=== PATIENT | male | born 1990 | race Caucasian/White ===

== ENCOUNTER 2021-07-08 20:18 | Emergency (ER) | payer SELFPAY ==
[2021-07-08 20:22] VITALS: BP 133/77
--- NOTE | 2021-07-08 22:01 | XRay Report ---
RIGHT FOOT 3 VIEW(S) INDICATION / CLINICAL INFORMATION: INJURY COMPARISON: None available. FINDINGS: BONES / JOINT(S): No acute fracture or subluxation. No significant arthritis. SOFT TISSUES: No significant abnormality. ADDITIONAL FINDINGS: None. Signer Name: Alfredo Galo DO Signed: 07/08/2021 9:56 PM Workstation Name: [id number]
--- NOTE | 2021-07-08 22:05 | Emergency Department Report ---
ED Lower Extremity HPI - General Chief Complaint: Extremity Injury, Lower Stated Complaint: RIGHT TOE INJURY Time Seen by Provider: 07/08/21 21:35 Source: patient Mode of arrival: Ambulatory Limitations: No Limitations - History of Present Illness Initial Comments: 31-year-old male with no significant past medical history presents emerged department complaining of toe pain that was secondary to a dresser which he dropped on his foot causing a crush injury noted deformity to his toe. Injury occurred on yesterday with continued negative days he presents emerged part my seeking further evaluation and treatment options. Pain is dull and throbbing worse with palpation and certain positions also with ambulate Type of Injury: blunt Place: home Severity: mild, moderate Improves With: nothing Worsens With: nothing Associated Symptoms: swelling, able to partially bear weight - Related Data Previous Rx's Medication Instructions Recorded Last Taken Type traMADoL [Ultram] 50 mg PO Q6HR PRN #20 tablet 07/08/21 Unknown Rx Allergies Allergy/AdvReac Type Severity Reaction Status Date / Time No Known Allergies Allergy Unverified 07/08/21 20:24 ED Review of Systems ROS: Stated complaint: RIGHT TOE INJURY Other details as noted in HPI Comment: All other systems reviewed and negative ED Past Medical Hx - Past Medical History Previous Medical History?: No - Surgical History Past Surgical History?: Yes Additional Surgical History: RIGHT JAW SURGERY - Medications Home Medications: Home Medications Medication Instructions Recorded Confirmed Last Taken Type traMADoL [Ultram] 50 mg PO Q6HR PRN #20 tablet 07/08/21 Unknown Rx ED Physical Exam - General Limitations: No Limitations General appearance: alert, in no apparent distress - Head Head exam: Present: atraumatic, normocephalic - Eye Eye exam: Present: normal appearance - ENT ENT exam: Present: mucous membranes moist - Neck Neck exam: Present: normal inspection - Respiratory Respiratory exam: Present: normal lung sounds bilaterally. Absent: respiratory distress - Cardiovascular Cardiovascular Exam: Present: regular rate, normal rhythm. Absent: systolic murmur, diastolic murmur, rubs, gallop - GI/Abdominal GI/Abdominal exam: Present: soft, normal bowel sounds - Rectal Rectal exam: Present: deferred - Extremities Exam Extremities exam: Present: normal inspection - Back Exam Back exam: Present: normal inspection. Absent: CVA tenderness (R), CVA tenderness (L) - Neurological Exam Neurological exam: Present: alert, oriented X3, CN II-XII intact - Psychiatric Psychiatric exam: Present: normal affect, normal mood. Absent: flat affect, manic, homicidal ideation - Skin Skin exam: Present: warm, dry, intact, normal color. Absent: rash, diaphoretic, erythema ED Course Vital Signs 07/08/21 20:22 Temperature 98.6 F Pulse Rate 91 H Respiratory 18 Rate Blood Pressure 133/77 [Right] Critical care attestation.: If time is entered above; I have spent that time in minutes in the direct care of this critically ill patient, excluding procedure time. ED Disposition Clinical Impression: Toe deformity, Crush injury Disposition: HOME / SELF CARE / HOMELESS Condition: Stable Instructions: Foot Contusion, [id number], Toe Deformity Repair, Crush Injury of the Foot Additional Instructions: You have traumatic injury to the second toe on your right foot resulting and a plantar deformity to the distal interphalangeal joint suggestive of ligamentous damage with a small avulsion/microfracture noted on x-ray. Please keep the foot splint and postop shoe in place until you have follow-up and utilize for comfort. You may take anti-inflammatories over the prescribed medication as needed for any discomfort. Prescriptions: traMADoL [Ultram] 50 mg PO Q6HR PRN #20 tablet PRN Reason: Pain Referrals: [facility] [Provider Group] - 3-5 Days [facility] [Provider Group] - 3-5 Days [facility], [Primary Care Provider] - 3-5 Days
== END 2021-07-08 23:59 | disposition home or self-care (01) ==
LOC: ED 20:18
DX: S97.101A Crushing injury of unspecified right toe(s), initial encounter (principal); W20.8XXA Other cause of strike by thrown, projected or falling object, initial encounter; Y93.89 Activity, other specified; Y92.89 Other specified places as the place of occurrence of the external cause; Y99.8 Other external cause status; Z98.890 Other specified postprocedural states
CPT/HCPCS: 99283